=== PATIENT | male | born 1970 | race Caucasian/White ===

== ENCOUNTER 2018-06-18 06:56 | Day surgery (SDC) | payer OTHER ==
[2018-06-18 08:02] LABS: ADD MAN DIFF? NO
[2018-06-18 08:04] LABS: WHITE BLOOD COUNT 6.8 10^3/ul (4.8-10.8)
[2018-06-18 08:05] LABS: BASOPHIL # 0.1 10^3/ul (0.0-0.1); BASOPHILS % 1.5 % (0.0-2.0); EOSINOPHILS # 0.1 10^3/ul (0.0-0.5); EOSINOPHILS % 1.8 % (0.0-7.0); HEMATOCRIT 36.5 % (42.0-52.0); HEMOGLOBIN 12.5 g/dl (14.0-18.0); LYMPHOCYTES # 1.7 10^3/ul (0.8-2.9); LYMPHOCYTES % 25.6 % (15.0-51.0); MEAN CORPUSCULAR HEMOGLOBIN 32.3 pg (29.0-33.0); MEAN CORPUSCULAR HGB CONC 34.2 g/dl (32.0-37.0); MEAN CORPUSCULAR VOLUME 94.3 fl (82.0-101.0); MEAN PLATELET VOLUME 9.9 fl (7.4-10.4); MONOCYTE # 0.7 10^3/ul (0.3-0.9); MONOCYTES % 10.4 % (0.0-11.0); NEUTROPHIL # 4.1 10^3/ul (1.6-7.5); NEUTROPHILS % 60.3 % (39.0-77.0); PLATELET COUNT 202 10^3/UL (140-415); RED BLOOD COUNT 3.87 10^6/ul (4.70-6.10); RED CELL DISTRIBUTION WIDTH 14.1 % (11.5-14.5)
[2018-06-18 08:24] LABS: INR 0.82; PROTIME 11.4 Sec (11.9-14.9); PT RATIO 0.9
[2018-06-18 08:32] LABS: ALANINE AMINOTRANSFERASE 99 IU/L (13-69); ALBUMIN 4.4 g/dl (3.3-4.9); ALBUMIN/GLOBULIN RATIO 1.46; ALKALINE PHOSPHATASE 85 IU/L (42-121); ANION GAP 14 (8-16); ASPARTATE AMINO TRANSFERASE 119 IU/L (15-46); BILIRUBIN,INDIRECT 0.3 mg/dl (0-1.1); BILIRUBIN,TOTAL 0.3 mg/dl (0.2-1.3); BLOOD UREA NITROGEN 14 mg/dl (7-20); CALCIUM 9.2 mg/dl (8.4-10.2); CARBON DIOXIDE 28 mmol/L (21-31); CHLORIDE 105 mmol/L (97-110); CHOLESTEROL 206 mg/dl (100-200); GLUCOSE 127 mg/dl (70-220); HDL CHOLESTEROL 68 mg/dl (28-71); LDL CHOLESTEROL,CALCULATED 120 mg/dl; POTASSIUM 4.3 mmol/L (3.5-5.1); SODIUM 143 mmol/L (135-144); TOTAL PROTEIN 7.4 g/dl (6.1-8.1); TRIGLYCERIDES 88 mg/dl (0-149)
[2018-06-18 08:39] LABS: PARTIAL THROMBOPLASTIN TIME 22.5 Sec (25.0-35.0)
[2018-06-18] MEDS ORDERED: HEPARIN 1000 UNITS/ML 10 ML INJ (09:34)
[2018-06-18] MEDS ORDERED: IODIXANOL LOCM 100 ML BTL (09:34)
[2018-06-18] MEDS ORDERED: VERAPAMIL 5 MG INJ (09:34)
[2018-06-18] MEDS ORDERED: MIDAZOLAM 1 MG/ML 2 ML INJ (09:34)
[2018-06-18] MEDS ORDERED: NITROGLYCERIN (IC) 100 MCG/ML INJ (09:34)
[2018-06-18] MEDS ORDERED: FENTAnyl 50 MCG/ML VIAL (09:34)
[2018-06-18] MEDS ORDERED: SOD CHLORIDE 0.9% 1,000 ML IV (10:25)
[2018-06-18] MEDS ORDERED: AL HYDROX/MG HYDROX/SIMETH 30 ML CUP PO (10:30)
[2018-06-18] MEDS ORDERED: ONDANSETRON 4 MG INJ IV (10:30)
[2018-06-18] MEDS ORDERED: ACETAMINOPHEN 325 MG TAB PO (10:30)
[2018-06-18] MEDS ORDERED: HYDROCODONE/APAP (5/325) TAB (12:44)
[2018-06-18] MEDS: HYDROCODONE/APAP (5/325) TAB PO (13:37)
== END 2018-06-18 16:50 | disposition home or self-care (01) ==
LOC: SDS 06:56
DX: I05.9 Rheumatic mitral valve disease, unspecified (principal); I10 Essential (primary) hypertension; E78.2 Mixed hyperlipidemia; F17.200 Nicotine dependence, unspecified, uncomplicated
CPT/HCPCS: 80053; 80061; 82962; 85025; 85610; 85730; 93005; 93458